=== PATIENT | male | born 1985 | race African-American/Black ===

== ENCOUNTER 2016-10-30 06:53 | Emergency (ER) | payer OTHER ==
[~2016-10-30 06:53] MED LIST: DOXYCYCLINE PO; FLEXERIL10 MG PO; ORUDIS75 M1 PO
== END 2016-10-30 08:01 | disposition home or self-care (01) ==
LOC: CED 06:53
DX: L02.416 Cutaneous abscess of left lower limb (principal); L02.415 Cutaneous abscess of right lower limb; F17.200 Nicotine dependence, unspecified, uncomplicated
CPT/HCPCS: 10060; 99283